=== PATIENT | male | born 1955 | race Caucasian/White ===

== ENCOUNTER 2018-06-06 01:39 | Observation (INO) | payer BC ==
--- NOTE | 2018-06-06 01:41 | EDPHY ---
H & P Time Seen by Provider: 06/06/18 01:41 HPI/ROS: HPI CHIEF COMPLAINT: Abdominal pain. HISTORY OF PRESENT ILLNESS: This is 62-year-old male, otherwise healthy, presents emergency room with left lower quadrant abdominal pain. Patient states that he developed some left lower quadrant abdominal pain this evening. It has been persistent. It is worse when he moves or goes to sit up. He has had a history of diverticulitis. However the pain is located left lower quadrant, left groin region. No testicular pain. Hurts when you press there. Denies any injury. Denies fever, urinary symptoms, testicular pain. Denies vomiting. Past Medical History: Diverticulitis Past Surgical History: Mitral valve repair. Social History: Denies drugs alcohol tobacco. Family History: Noncontributory ROS REVIEW OF SYSTEMS: 10 Systems were reviewed and negative with the exception of the elements mentioned in the history of present illness. Exam Constitutional triage nursing summary reviewed, vital signs reviewed, awake/ alert. Eyes normal conjunctivae and sclera, EOMI, PERRLA. HENT normal inspection, atraumatic, moist mucus membranes, no epistaxis, neck supple/ no meningismus, no raccoon eyes. Respiratory clear to auscultation bilaterally, normal breath sounds, no respiratory distress, no wheezing. Cardiovascular rate normal, regular rhythm, no murmur, no edema, distal pulses normal. Gastrointestinal pain is located left lower quadrant, on exam tender in 1 focal area, no significant obvious hernia seen, no rebound, no guarding, normal bowel sounds, no distension, no pulsatile mass. Genitourinary no CVA tenderness. Musculoskeletal no midline vertebral tenderness, full range of motion, no calf swelling, no tenderness of extremities, no meningismus, good pulses, neurovascularly intact. Skin pink, warm, & dry, no rash, skin atraumatic. Neurologic awake, alert and oriented x 3, AAOx3, moves all 4 extremities equally, motor intact, sensory intact, CN II-XII intact, normal cerebellar, normal vision, normal speech. Psychiatric normal mood/affect. Heme/Lymph/Immune no lymphadenopathy. Differential diagnosis includes but is not limited to and in no particular order : Bowel obstruction, appendicitis, gallbladder disease, diverticulitis, colitis , enteritis, perforated viscus, gastritis, GERD, esophagitis, urinary tract infection, pyelonephritis, kidney stones Medical Decision Making: Plan for this patient IV establishment with IV fluid bolus, basic blood work, CT scan abdomen pelvis with IV contrast rule out acute diverticulitis versus hernia. Re-evaluation: CT scan abdomen pelvis with IV contrast reviewed this shows acute diverticulitis. Proximal sigmoid colon. Without perforation. Additionally there is an area of abnormal wall thickening of the colon. This will need outpatient follow-up with Tu Jimenez. I have discussed this with the patient. He understands. Plan for tonight given his pain, and stranding. Will give IV Flagyl IV Rocephin admit overnight for observation. Spoke with the hospitalist service Dr. De Leon agrees to admit. Patient agrees for admission. Source: Patient Constitutional: Initial Vital Signs Temperature (C) 36.9 C 06/06/18 01:43 Heart Rate 57 L 06/06/18 01:43 Respiratory Rate 18 06/06/18 01:43 Blood Pressure 132/74 H 06/06/18 01:43 O2 Sat (%) 97 06/06/18 01:43 O2 Delivery Mode Room Air Allergies/Adverse Reactions: levofloxacin [From Levaquin] Allergy (Verified 06/06/18 01:42) Home Medications: Medication Instructions Recorded Aspirin 81mg (*) 06/06/18 Trintellix 06/06/18 VYVANSE 06/06/18 Wellbutrin Sr 06/06/18 Medical Decision Making - Data Points Laboratory Results: Laboratory Results 06/06/18 02:03 06/06/18 02:03 06/06/18 06/06/18 06/06/18 02:03 02:03 02:03 WBC 9.34 10^3/uL 10^3/uL (3.80-9.50) RBC 4.40 10^6/uL 10^6/uL (4.40-6.38) Hgb 14.1 g/dL g/dL (13.7-17.5) Hct 41.1 % % (40.0-51.0) MCV 93.4 fL fL (81.5-99.8) MCH 32.0 pg pg (27.9-34.1) MCHC 34.3 g/dL g/dL (32.4-36.7) RDW 12.6 % % (11.5-15.2) Plt Count 236 10^3/uL 10^3/uL (150-400) MPV 10.3 fL fL (8.7-11.7) Neut % (Auto) 73.8 % % (39.3-74.2) Lymph % (Auto) 15.1 % % (15.0-45.0) [place] % (Auto) 8.4 % % (4.5-13.0) Eos % (Auto) 1.8 % % (0.6-7.6) Baso % (Auto) 0.4 % % (0.3-1.7) Nucleat RBC Rel Count 0.0 % % (0.0-0.2) Absolute Neuts (auto) 6.89 10^3/uL H 10^3/uL (1.70-6.50) Absolute Lymphs (auto) 1.41 10^3/uL 10^3/uL (1.00-3.00) Absolute Monos (auto) 0.78 10^3/uL 10^3/uL (0.30-0.80) Absolute Eos (auto) 0.17 10^3/uL 10^3/uL (0.03-0.40) Absolute Basos (auto) 0.04 10^3/uL 10^3/uL (0.02-0.10) Absolute Nucleated RBC 0.00 10^3/uL 10^3/uL (0-0.01) Immature Gran % 0.5 % % (0.0-1.1) Immature Gran # 0.05 10^3/uL 10^3/uL (0.00-0.10) PT 13.6 SEC SEC (12.0-15.0) INR 1.02 (0.83-1.16) APTT 31.2 SEC SEC (23.0-38.0) VBG Lactic Acid Sodium 141 mEq/L mEq/L (135-145) Potassium 3.7 mEq/L mEq/L (3.3-5.0) Chloride 104 mEq/L mEq/L (97-110) Carbon Dioxide 26 mEq/l mEq/l (22-31) Anion Gap 11 mEq/L mEq/L (8-16) BUN 20 mg/dL mg/dL (7-23) Creatinine 1.1 mg/dL mg/dL (0.7-1.3) Estimated GFR > 60 Glucose 102 mg/dL H mg/dL (70-100) Calcium 9.6 mg/dL mg/dL (8.5-10.4) Total Bilirubin 0.8 mg/dL mg/dL (0.1-1.4) Conjugated Bilirubin 0.1 mg/dL mg/dL (0.0-0.5) Unconjugated Bilirubin 0.7 mg/dL mg/dL (0.0-1.1) AST 24 IU/L IU/L (17-59) ALT 34 IU/L IU/L (21-72) Alkaline Phosphatase 37 IU/L L IU/L (38-126) Total Protein 6.3 g/dL g/dL (6.3-8.2) Albumin 4.0 g/dL g/dL (3.5-5.0) Lipase 100 IU/L IU/L (23-300) 06/06/18 02:03 WBC RBC Hgb Hct MCV MCH MCHC RDW Plt Count MPV Neut % (Auto) Lymph % (Auto) [place] % (Auto) Eos % (Auto) Baso % (Auto) Nucleat RBC Rel Count Absolute Neuts (auto) Absolute Lymphs (auto) Absolute Monos (auto) Absolute Eos (auto) Absolute Basos (auto) Absolute Nucleated RBC Immature Gran % Immature Gran # PT INR APTT VBG Lactic Acid 1.0 mmol/L mmol/L (0.7-2.1) Sodium Potassium Chloride Carbon Dioxide Anion Gap BUN Creatinine Estimated GFR Glucose Calcium Total Bilirubin Conjugated Bilirubin Unconjugated Bilirubin AST ALT Alkaline Phosphatase Total Protein Albumin Lipase Medications Given: Discontinued Medications Sodium Chloride (Ns) 1,000 mls @ 0 mls/hr IV EDNOW ONE; Wide Open PRN Reason: Protocol Stop: 06/06/18 01:49 Last Admin: 06/06/18 02:03 Dose: 1,000 mls Departure - Departure Disposition: [facility] Inpatient Acute Clinical Impression: Diverticulitis, Abdominal pain Condition: Fair Referrals: Rayo Bill MD [Primary Care Provider] - As per Instructions
[2018-06-06] MEDS ORDERED: NS 1,000 ML IV ONE (01:48)
[2018-06-06 02:14] LABS: PLATELET COUNT 236 10^3/uL (150-400)
[2018-06-06 02:22] LABS: INR 1.02 (0.83-1.16); PROTIME(PATIENT) 13.6 SEC (12.0-15.0)
[2018-06-06] MEDS ORDERED: IOPAMIDOL (ISOVUE-300) 100 ML BTL ONE (02:28)
[2018-06-06] MEDS ORDERED: CIPROFLOXACIN 200 MG/DEXTROSE 100 ML IV ONE (02:57)
[2018-06-06] MEDS ORDERED: ACETAMINOPHEN 325 MG TAB PO PRN (03:08)
[2018-06-06] MEDS ORDERED: ONDANSETRON 4 MG/2 ML VIAL IVP PRN (03:08)
[2018-06-06] MEDS ORDERED: oxyCODONE IR 5 MG TAB PO PRN (03:08)
[2018-06-06] MEDS ORDERED: HYDROmorphONE/DILAUDID 1 MG/ML INJ IVP PRN (03:08)
[2018-06-06] MEDS ORDERED: ONDANSETRON DISINTEGRATING 4 MG TAB PO PRN (03:08)
[2018-06-06] MEDS ORDERED: D5W 1/2 NS 1,000 ML IV SCH (03:15)
--- NOTE | 2018-06-06 03:32 | PDGENHP ---
History and Physical - Chief Complaint Abdominal pain - History of Present Illness 62 yo M w/ hx of depression presents with abdominal pain. The patient had acute onset LLQ abdominal pain around 9 PM last evening. He also felt warm and sweaty. He came to the ED when the pain worsened. In the ED a CT scan is notable for diverticulitis. He tells me he has had one bout of this in the past 5-10 years ago. Case discussed with ED physician Dr. Mcduffie; records reviewed in EMR. History Information - Allergies/Home Medication List Allergies/Adverse Reactions: levofloxacin [From Levaquin] Allergy (Verified 06/06/18 01:42) Home Medications: Aspirin 81mg (*) 06/06/18 [Last Taken Unknown] Trintellix 06/06/18 [Last Taken Unknown] VYVANSE 06/06/18 [Last Taken Unknown] Wellbutrin Sr 06/06/18 [Last Taken Unknown] I have personally reviewed and updated: family history, medical history - Past Medical History Additional medical history: Depression - Surgical History Additional surgical history: Mitral valve replacement - Family History Additional family history: Mother had carcinoid tumor - Social History Smoking Status: Never smoked Review of Systems Review of Systems: ROS: 10pt was reviewed & negative except for what was stated in HPI & below Physical Exam Physical Exam: Temp Pulse Resp BP Pulse Ox 36.9 C 57 L 18 132/74 H 97 06/06/18 01:43 06/06/18 01:43 06/06/18 01:43 06/06/18 01:43 06/06/18 01:43 Constitutional: no apparent distress, appears nourished Eyes: PERRL, EOMI Ears, Nose, Mouth, Throat: moist mucous membranes, no oral mucosal ulcers Cardiovascular: regular rate and rhythym, no murmur, rub, or gallop Respiratory: no respiratory distress, clear to auscultation Gastrointestinal: normoactive bowel sounds, tenderness (LLQ), No guarding, No rebound, No distension Skin: warm, normal color Musculoskeletal: full muscle strength, no muscle tenderness Neurologic: AAOx3, CN II-XII Intact Psychiatric: interacting appropriately, not anxious Lab Data & Imaging Review 06/06/18 02:03 06/06/18 02:03 WBC 9.34 10^3/uL (3.80-9.50) 06/06/18 02:03 RBC 4.40 10^6/uL (4.40-6.38) 06/06/18 02:03 Hgb 14.1 g/dL (13.7-17.5) 06/06/18 02:03 Hct 41.1 % (40.0-51.0) 06/06/18 02:03 MCV 93.4 fL (81.5-99.8) 06/06/18 02:03 MCH 32.0 pg (27.9-34.1) 06/06/18 02:03 MCHC 34.3 g/dL (32.4-36.7) 06/06/18 02:03 RDW 12.6 % (11.5-15.2) 06/06/18 02:03 Plt Count 236 10^3/uL (150-400) 06/06/18 02:03 MPV 10.3 fL (8.7-11.7) 06/06/18 02:03 Neut % (Auto) 73.8 % (39.3-74.2) 06/06/18 02:03 Lymph % (Auto) 15.1 % (15.0-45.0) 06/06/18 02:03 [place] % (Auto) 8.4 % (4.5-13.0) 06/06/18 02:03 Eos % (Auto) 1.8 % (0.6-7.6) 06/06/18 02:03 Baso % (Auto) 0.4 % (0.3-1.7) 06/06/18 02:03 Nucleat RBC Rel Count 0.0 % (0.0-0.2) 06/06/18 02:03 Absolute Neuts (auto) 6.89 10^3/uL (1.70-6.50) H 06/06/18 02:03 Absolute Lymphs (auto) 1.41 10^3/uL (1.00-3.00) 06/06/18 02:03 Absolute Monos (auto) 0.78 10^3/uL (0.30-0.80) 06/06/18 02:03 Absolute Eos (auto) 0.17 10^3/uL (0.03-0.40) 06/06/18 02:03 Absolute Basos (auto) 0.04 10^3/uL (0.02-0.10) 06/06/18 02:03 Absolute Nucleated RBC 0.00 10^3/uL (0-0.01) 06/06/18 02:03 Immature Gran % 0.5 % (0.0-1.1) 06/06/18 02:03 Immature Gran # 0.05 10^3/uL (0.00-0.10) 06/06/18 02:03 PT 13.6 SEC (12.0-15.0) 06/06/18 02:03 INR 1.02 (0.83-1.16) 06/06/18 02:03 APTT 31.2 SEC (23.0-38.0) 06/06/18 02:03 VBG Lactic Acid 1.0 mmol/L (0.7-2.1) 06/06/18 02:03 Sodium 141 mEq/L (135-145) 06/06/18 02:03 Potassium 3.7 mEq/L (3.3-5.0) 06/06/18 02:03 Chloride 104 mEq/L (97-110) 06/06/18 02:03 Carbon Dioxide 26 mEq/l (22-31) 06/06/18 02:03 Anion Gap 11 mEq/L (8-16) 06/06/18 02:03 BUN 20 mg/dL (7-23) 06/06/18 02:03 Creatinine 1.1 mg/dL (0.7-1.3) 06/06/18 02:03 Estimated GFR > 60 06/06/18 02:03 Glucose 102 mg/dL (70-100) H 06/06/18 02:03 Calcium 9.6 mg/dL (8.5-10.4) 06/06/18 02:03 Total Bilirubin 0.8 mg/dL (0.1-1.4) 06/06/18 02:03 Conjugated Bilirubin 0.1 mg/dL (0.0-0.5) 06/06/18 02:03 Unconjugated Bilirubin 0.7 mg/dL (0.0-1.1) 06/06/18 02:03 AST 24 IU/L (17-59) 06/06/18 02:03 ALT 34 IU/L (21-72) 06/06/18 02:03 Alkaline Phosphatase 37 IU/L (38-126) L 06/06/18 02:03 Total Protein 6.3 g/dL (6.3-8.2) 06/06/18 02:03 Albumin 4.0 g/dL (3.5-5.0) 06/06/18 02:03 Lipase 100 IU/L (23-300) 06/06/18 02:03 Imaging Review: diverticulitis prox sigmoid also 5cm length of prox sigmoid wall thickening without prox colon dilatation, free air or abcess pt must have colonoscopy after inflammation has subsided called [facility] at 2:55am Assessment & Plan Assessment: 62 yo M presents with acute diverticulitis. Plan: 1. Acute diverticulitis - Onset of symptoms 9 PM last evening; uncomplicated per CT scan (personally reviewed/interpreted). No signs of sepsis physiology at this time. - Admit for observation - CTX/Flagyl IV - Maintain NPO for now - mIVF, pain control PRN 2. Colon wall thickening - Noted on admission CT scan. Patient tells me he last had a colonoscopy 2-3 years ago that only had a few polyps. - Recommended repeat colonoscopy as outpatient 3. Depression - Continue home medications pending reconciliation Diet - NPO, ADAT Code - Full Ppx - SCDs Dispo - Admit under observation status
[2018-06-06 08:10] VITALS: BP 118/77
[2018-06-06] MEDS ORDERED: Lisdexamfetamine Dimesylate [Vyvanse] 30 MG PO PRN (08:58)
[2018-06-06] MEDS ORDERED: buPROPion XL 150 MG TAB PO SCH (09:00)
[2018-06-06] MEDS ORDERED: ASPIRIN 81 MG CHEWABLE TAB PO SCH (09:00)
[2018-06-06] MEDS ORDERED: Vortioxetine Hydrobromide [Trintellix] 5 MG PO SCH (09:00)
--- NOTE | 2018-06-06 11:38 | ASMTCMCOM ---
CM Note CM Note Notes: CM reviewed pt's chart for d/c planning. Pt is a 62 y/o male with abdominal pain and a hx of depression. The pt had acute onset abdominal pain around 9PM last night. He also felt warm and sweaty. A CT scan was notable for diverticulitis. He had one bout of this 5-10 years ago. Pt lives with his , Aleta [phone], . PT/OT not ordered. It is anticipated that Pt will have no CM needs upon d/c. CM will follow for changes. D/C Plan: Anticipate Independent. Date Signed: 06/06/2018 11:37 AM Electronically Signed By:Aleta Brito
--- NOTE | 2018-06-06 16:52 | PDDCSUM ---
Discharge Summary Discharge Summary: DISCHARGE SUMMARY FOLLOW-UP ITEMS: Schedule outpatient colonoscopy in approximately 4 weeks DATE OF ADMISSION: 06/05/2018 DATE OF DISCHARGE: 06/06/2018 DISCHARGE DIAGNOSES: 1. Acute diverticulitis CONSULTATIONS: None PROCEDURES / IMAGING: CT of the abdomen demonstrating proximal sigmoid colon diverticulitis with possible mural thickening CHIEF COMPLAINT: Acute left lower quadrant pain SUBJECTIVE: Patient is feeling well at time discharge, he does have some mild left lower quadrant pain these tolerating clear liquids he is not having any other GI symptoms PHYSICAL EXAM ON DISCHARGE: Systolic blood pressure is 120-130, heart rate 60, afebrile overnight, satting well on room air, alert awake oriented x3, mild tenderness to moderate palpation in left lower quadrant, no rebound or guarding, bowel sounds are active, heart rhythm is regular LABS ON DISCHARGE: White blood cell count 9300, creatinine 1.1, urinalysis unremarkable HOSPITAL COURSE BY PROBLEM: Patient presented with left lower quadrant pain, CT evidence of proximal sigmoid diverticulitis, and possible a concentric mural thickening. He was initiated on IV ceftriaxone and Flagyl, and he symptomatically improved. His diet was advanced from NPO to clear liquids, he received IV fluids, and he required minimal pain control. The patient advanced his diet safely to clear liquids and was safe for outpatient management, with 10 subsequent days of Cipro /Flagyl ordered as well as recommendations for outpatient colonoscopy in approximately 4 weeks after the local inflammation has subsided. I recommend that he follow up with his primary care provider in 1 week to reassess any ongoing symptoms. DISCHARGE MEDICATIONS: Please see official discharge medication reconciliation sheet in chart , ciprofloxacin 500 mg twice daily times 10 days, metronidazole 500 mg 3 times daily times 10 days, as needed Tylenol, as needed ibuprofen. DISCHARGE INSTRUCTIONS: Please follow up with PCP in 1 week, arrange for colonoscopy in 4 weeks.
== END 2018-06-06 13:43 | disposition home or self-care (01) ==
LOC: F3E 03:50
PROVIDERS: ADMIT Student in an Organized Health Care Education/Training Program; ATTEND Student in an Organized Health Care Education/Training Program
DX: K57.32 Diverticulitis of large intestine without perforation or abscess without bleeding (principal); R93.3 Abnormal findings on diagnostic imaging of other parts of digestive tract; F32.9 Major depressive disorder, single episode, unspecified; Z95.2 Presence of prosthetic heart valve; E86.9 Volume depletion, unspecified
CPT/HCPCS: 74177; 96361; 96365; 99285; G0378; J0696; Q9967